=== PATIENT | female | born 2000 | race Two or more races ===

== ENCOUNTER 2021-05-10 13:43 | Emergency (ER) | payer MEDICAID ==
[~2021-05-10] VITALS: Ht 165.1 cm; Wt 56.7 kg
[2021-05-10 13:54] VITALS: BP 102/70
== END 2021-05-10 19:33 | disposition home or self-care (01) ==
LOC: ER 13:43
DX: J02.9 Acute pharyngitis, unspecified (principal); N39.0 Urinary tract infection, site not specified; E86.0 Dehydration; Z20.822 Contact with and (suspected) exposure to COVID-19
CPT/HCPCS: 36415; 71046; 81002; 81025; 87426